=== PATIENT | female | born 2000 | race Caucasian/White ===

== ENCOUNTER 2022-09-24 04:02 | Outpatient (CLI) | payer OTHER, SELFPAY | END 2022-09-24 04:03 | disposition home or self-care (01) | LOC: AMB 10-07 14:18 | PROVIDERS: Visit Provider Family Medicine | DX: T14.91XA Suicide attempt, initial encounter (principal); X78.9XXA Intentional self-harm by unspecified sharp object, initial encounter; Y92.169 Unspecified place in school dormitory as the place of occurrence of the external cause | CPT/HCPCS: A0425; A0427 ==

== ENCOUNTER 2022-09-24 04:37 | Emergency (ER) | payer OTHER, SELFPAY ==
[2022-09-24 04:47] VITALS: BP 125/81; PULSE 99; RESP 20; TEMP 36.8; O2SAT 99; BMI 33.4
--- NOTE | 2022-09-24 05:03 | ED_ITS ---
HPI - General Adult General Time Seen by Provider: 05:03 <Aminah Rodríguez MD - Last Filed: 09/24/22 08:51> Date Seen: 09/24/22 <Aminah Rodríguez MD - Last Filed: 09/24/22 08:51> Chief complaint: Psychiatric Problem/Disorder <Aminah Rodríguez MD - Last Filed: 09/24/22 08:51> Stated complaint: Mental Health <Aminah Rodríguez MD - Last Filed: 09/24/22 08:51> Time Seen by Provider: 09/24/22 04:56 <Aminah Rodríguez MD - Last Filed: 09/24/22 08:51> Source: patient, EMS and RN notes reviewed <Aminah Rodríguez MD - Last Filed: 09/24/22 08:51> Mode of arrival: EMS <Aminah Rodríguez MD - Last Filed: 09/24/22 08:51> Limitations: no limitations <Aminah Rodríguez MD - Last Filed: 09/24/22 08:51> History of Present Illness HPI narrative: Patient is a 22-year-old female that called EMS for a wound on her left forearm that spurted blood from cutting. She states she was trying to hurt herself but not kill herself. She does do self cutting. She has a history of depression and is on Lexapro, has been taking her medication. She is never had a suicide attempt, has never been hospitalized for psychiatric care. 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 She has seen the counselors at [employer] before. Denies any suicidality, no plan. The bleeding in her left forearm from the cutting stopped immediately after some pressure. Her tetanus is up-to-date in 2013. She again denies suicidality, this was not an intent to kill herself. She is otherwise been well, no cough cold symptoms, no illness. Patient has not been drinking any alcohol, does not do any illicit drugs. No chance for . <Aminah Rodríguez MD - Last Filed: 09/24/22 08:51> Related Data Home medications: Home Medications Medication Instructions Recorded Confirmed escitalopram oxalate 10 mg tablet 10 mg PO DAILY 09/24/22 09/24/22 norgestimate 0.25 mg-ethinyl 1 tab PO DAILY 09/24/22 09/24/22 estradiol 35 mcg tablet (Sprintec (28)) <Aminah Rodríguez MD - Last Filed: 09/24/22 08:51> Allergies/adverse reactions: Allergies Allergy/AdvReac Type Severity Reaction Status Date / Time No Known Drug Allergies Allergy Verified 09/24/22 05:06 <Aminah Rodríguez MD - Last Filed: 09/24/22 08:51> Review of Systems Status of ROS: Reports: 10 or more systems reviewed and unremarkable except as noted in History and below <Aminah Rodríguez MD - Last Filed: 09/24/22 08:51> [facility] Medical History: Medical History (Updated 09/24/22 @ 05:15 by Aminah Rodríguez MD) Depression <Aminah Rodríguez MD - Last Filed: 09/24/22 08:51> Social History: Social History Smoking Status: Never smoker Second hand tobacco smoke exposure: No How often do you have a drink containing alcohol: never AUDIT-C Alcohol total score: 0 Non-prescribed substance use: denies use service: No <Aminah Rodríguez MD - Last Filed: 09/24/22 08:51> Exam Const: Vital Signs, click to edit/add: Vital Signs - 24 hr 09/24/22 04:47 Temperature 98.2 F Pulse Rate [Left P ulse Oximeter] 99 Respiratory Rate 20 Blood Pressure [Ri ght Upper Arm] 125/81 Pulse Oximetry 99 Oxygen Delivery Me thod Room Air <Aminah Rodríguez MD - Last Filed: 09/24/22 08:51> Vital Signs, click to edit/add: Vital Signs - 24 hr 09/24/22 04:47 Temperature 98.2 F Pulse Rate [Left P ulse Oximeter] 99 Respiratory Rate 20 Blood Pressure [Ri ght Upper Arm] 125/81 Pulse Oximetry 99 Oxygen Delivery Me thod Room Air <Aminah Kilgore MD - Last Filed: 09/24/22 09:30> Documenting provider has reviewed patient's vital signs: yes <Aminah Rodríguez MD - Last Filed: 09/24/22 08:51> Common normals: no apparent distress, average body habitus, oriented x3, no limitations, healthy appearing and alert <Aminah Rodríguez MD - Last Filed: 09/24/22 08:51> General appearance: cooperative, comfortable, well kempt and well developed <Aminah Rodríguez MD - Last Filed: 09/24/22 08:51> HENMT: Common normals: normocephalic, head/scalp atraumatic and hearing grossly normal bilaterally <Aminah Rodríguez MD - Last Filed: 09/24/22 08:51> Head and scalp: normocephalic and atraumatic <Aminah Rodríguez MD - Last Filed: 09/24/22 08:51> Eye: Common normals: PERRL, EOMs intact bilaterally, conjunctivae normal and no scleral icterus <Aminah Rodríguez MD - Last Filed: 09/24/22 08:51> Conjunctiva: conjunctiva(e) normal <Aminah Rodríguez MD - Last Filed: 09/24/22 08:51> Pupil: PERRL <Aminah Rodríguez MD - Last Filed: 09/24/22 08:51> Neck & C-Spine: Common normals: full ROM, no lymphadenopathy, supple, no meningeal signs, no JVD and thyroid normal <Aminah Rodríguez MD - Last Filed: 09/24/22 08:51> Thyroid: thyroid normal <Aminah Rodríguez MD - Last Filed: 09/24/22 08:51> Resp: Common normals: normal respiratory effort, no retractions, no use of accessory muscles and clear to auscultation bilaterally <Aminah Mix MD - Last Filed: 09/24/22 08:51> Auscultation: clear to auscultation bilaterally <Aminah Rodríguez MD - Last Filed: 09/24/22 08:51> Cardio: Common normals: no JVD, regular rate, regular rhythm, S1 normal heart sound, S2 normal heart sound, no gallops, no clicks and no murmurs <Aminah Rodríguez MD - Last Filed: 09/24/22 08:51> Rate: regular rate <Aminah Rodríguez MD - Last Filed: 09/24/22 08:51> Rhythm: regular rhythm <Aminah Rodríguez MD - Last Filed: 09/24/22 08:51> Heart sounds: S1 normal and S2 normal <Aminah Rodríguez MD - Last Filed: 09/24/22 08:51> Extremity: Other: On her left distal forearm has multiple horizontal cut kraus in various stages of healing. Some a are certainly new. The 1 tonight is just into the subcutaneous tissue, wound edges are very well approximated, it did briefly spread the wound edges just to see how deep it was. The wound edges come back together immediately, there is no active bleeding. This is superficial enough that I do not feel it requires suturing. There is certainly no evidence of any ongoing bleeding. She has other cut kraus that have healed, others are scabbed. No evidence of any infection on this forearm/wrist. <Aminah Rodríguez MD - Last Filed: 09/24/22 08:51> Neuro: Common normals: oriented x3, CN's II-XII intact bilaterally, moves all extremities, no focal motor deficits and no sensory deficits noted <Aminah Rodríguez MD - Last Filed: 09/24/22 08:51> Sensorium/orientation: alert <Aminah Rodríguez MD - Last Filed: 09/24/22 08:51> Meningeal signs: no meningeal signs <Aminah Rodríguez MD - Last Filed: 09/24/22 08:51> Psych: Common normals: mental status grossly normal, thought process normal and cooperative <Aminah Rodríguez MD - Last Filed: 09/24/22 08:51> Appearance: well kempt <Aminah Rodríguez MD - Last Filed: 09/24/22 08:51> Thought process: normal thought process <Aminah Rodríguez MD - Last Filed: 09/24/22 08:51> Other: Looks like she has been crying, not tearful here though. Has good eye contact. Denies suicidality. Speech is normal, very pleasant 22-year-old female. <Aminah Rodríguez MD - Last Filed: 09/24/22 08:51> Course Course Hospital Course: Reviewed with Loren that I would like her to have a consult with [facility]. She is in agreement with this. I do not see that she needs any laboratory workup at this time. If for some reason the telehealth consultation would deeper her to require hospitalization, will need to re-evaluate doing labs. This time she is stable, just want to make sure that we have a good outpatient plan for her. As far as her wounds, we will clean her forearm, dress it. I did have a conversation with her DEC [employer] who felt that Loren was safe to go home. She has been having some suicidal thoughts however does not have a plan and does not want to act on them. She has very future is sick thinking has plans and goals for the end of the school year and this summer. She does have a history of depression and she is currently seeing a counselor. She was able to safety plan today very well. She also has a therapy appointment today at 11:00 a.m.. And reiterated that her cutting was not an attempt on her life. <Aminah Rodríguez MD - Last Filed: 09/24/22 08:51> Consultations Consultation #1: Spoke with telehealth. They will be interviewing the patient to ensure that she is safe for discharge to further outpatient management. They will contact us back once they have had the chance to interview her. <Aminah oRdríguez MD - Last Filed: 09/24/22 08:51> Time: 07:19 <Aminah Rodríguez MD - Last Filed: 09/24/22 08:51> Vital Signs Vital signs: Initial Vital Signs Temperature 98.2 F 09/24/22 04:47 Temperature Source Temporal Artery Scan 12/05/22 04:47 Pulse Rate 99 09/24/22 04:47 Respiratory Rate 20 09/24/22 04:47 Blood Pressure 125/81 09/24/22 04:47 Blood Pressure Mean 95 09/24/22 04:47 Blood Pressure Position Sitting 09/24/22 04:47 Pulse Oximetry 99 09/24/22 04:47 Oxygen Delivery Method 09/24/22 04:47 Vital Signs Temperature 98.2 F 09/24/22 04:47 Pulse Rate 99 09/24/22 04:47 Respiratory Rate 20 09/24/22 04:47 Blood Pressure 125/81 09/24/22 04:47 Pulse Oximetry 99 09/24/22 04:47 Oxygen Delivery Method 09/24/22 04:47 Temperature 98.2 F 09/24/22 04:47 Pulse Rate 99 09/24/22 04:47 Respiratory Rate 20 09/24/22 04:47 Blood Pressure 125/81 09/24/22 04:47 Pulse Oximetry 99 09/24/22 04:47 Oxygen Delivery Method 09/24/22 04:47 <Aminah Rodríguez MD - Last Filed: 09/24/22 08:51> Initial Vital Signs Temperature 98.2 F 09/24/22 04:47 Temperature Source Temporal Artery Scan 09/24/22 04:47 Pulse Rate 99 09/24/22 04:47 Respiratory Rate 20 09/24/22 04:47 Blood Pressure 125/81 09/24/22 04:47 Blood Pressure Mean 95 09/24/22 04:47 Blood Pressure Position Sitting 09/24/22 04:47 Pulse Oximetry 99 09/24/22 04:47 Oxygen Delivery Method 09/24/22 04:47 Vital Signs Temperature 98.2 F 09/24/22 04:47 Pulse Rate 99 09/24/22 04:47 Respiratory Rate 20 09/24/22 04:47 Blood Pressure 125/81 09/24/22 04:47 Pulse Oximetry 99 09/24/22 04:47 Oxygen Delivery Method 09/24/22 04:47 Temperature 98.2 F 09/24/22 04:47 Pulse Rate 99 09/24/22 04:47 Respiratory Rate 20 09/24/22 04:47 Blood Pressure 125/81 09/24/22 04:47 Pulse Oximetry 99 09/24/22 04:47 Oxygen Delivery Method 09/24/22 04:47 <Aminah Kilgore MD - Last Filed: 09/24/22 09:30> Medical Decision Making MDM Narrative Medical decision making narrative: 22-year-old female depression, cutting behavior-after assessment by DEC patient was deemed safe to go home with a safety contract an outpatient care planning. She has several resources were shared with her. Again patient states that she feels safe going home. <Aminah Kilgore MD - Last Filed: 09/24/22 09:30> Critical Care Time Critical Care Time Critical Care Time: No <Aminah Rodríguez MD - Last Filed: 09/24/22 08:51> Discharge Plan Discharge Clinical Impression: Depression, Deliberate self-cutting <Aminah Rodríguez MD - Last Filed: 09/24/22 08:51> Patient Disposition: Home, Self-Care <Aminah Rodríguez MD - Last Filed: 09/24/22 08:51> Condition: Stable <Aminah Rodríguez MD - Last Filed: 09/24/22 08:51> Instructions: Suicide Prevention (ED) <Aminah Rodríguez MD - Last Filed: 09/24/22 08:51> Additional Instructions: Can shower with your left arm wounds, use bandages during the day. Would recommend bacitracin bandaging to keep this wound clean until it is healed. If you do notice any increasing pain, redness, swelling, associated fever or purulent discharge, need to have the wound further evaluated for possible infection. Continue with your Lexapro daily, do recommend seeing therapist at [facility]. At some point when your home, recommend checking in with the physician or provider that manages your Lexapro to make sure that you are on adequate dosage or correct medicine for you. <Aminah Rodríguez MD - Last Filed: 09/24/22 08:51> Activity Level: Activity as Tolerated <Aminah Rodríguez MD - Last Filed: 09/24/22 08:51> Activity as Tolerated <Aminah Kilgore MD - Last Filed: 09/24/22 09:30> Discharge Diet: Regular <Aminah Rodríguez MD - Last Filed: 09/24/22 08:51> Regular <Aminah Kilgore MD - Last Filed: 09/24/22 09:30> Prescriptions: No Action norgestimate-ethinyl estradiol [Sprintec (28)] 0.25-35 mg-mcg tablet 1 tab PO DAILY escitalopram oxalate 10 mg tablet 10 mg PO DAILY <Aminah Rodríguez MD - Last Filed: 09/24/22 08:51> Stand Alone Forms: [facility] Info Instructions <Aminah Rodríguez MD - Last Filed: 09/24/22 08:51>
== END 2022-09-24 09:58 | disposition home or self-care (01) ==
PROVIDERS: Emergency Provider Family Medicine
DX: F32.A Depression, unspecified (principal); S51.812A Laceration without foreign body of left forearm, initial encounter; X78.9XXA Intentional self-harm by unspecified sharp object, initial encounter; Y93.9 Activity, unspecified; Y92.9 Unspecified place or not applicable; Y99.9 Unspecified external cause status
CPT/HCPCS: 99283; 99284

== ENCOUNTER 2023-08-15 22:53 | Emergency (ER) | payer OTHER, SELFPAY ==
[2023-08-15 23:10] VITALS: BP 124/80; PULSE 108; RESP 18; TEMP 37.3; O2SAT 99; BMI 33.4
[2023-08-15 23:24] LABS: Appearance Urine Cloudy (Clear); Bilirubin Urine Negative (Negative); Blood Urine 3+ (Negative); Color Urine Brown (Yellow); Glucose Urine Negative (Negative); Ketones Urine Negative (Negative); Leukocyte Esterase Urine 1+ (Negative); Nitrite Urine Positive (Negative); Protein Urine 3+ (Negative); Specific Gravity Urine >= 1.030 (1.000-1.030); Urobilinogen Urine 0.2 (0.2-1.0); pH Urine 6.5 (5.0-8.5)
[2023-08-15 23:37] LABS: RBC Urine >100 (0-2)
[2023-08-15 23:38] LABS: Amorphous Sediment Urine Few; Bacteria Urine Moderate; Squamous Epithelial Cell Urine Moderate (None-Few)
[2023-08-16 00:31] VITALS: BP 118/78; PULSE 98; RESP 18; TEMP 36.9; O2SAT 99
--- NOTE | 2023-08-16 01:05 | ED_ITS ---
HPI - General Adult General Date Seen: 08/16/23 Chief complaint: Urogenital Problems, Female Stated complaint: UTI Time Seen by Provider: 08/16/23 00:18 Source: patient Mode of arrival: ambulatory Limitations: no limitations History of Present Illness HPI narrative: Patient is a 23-year-old [employer] student who comes in with three days of dysuria, urgency, frequency. No fevers or chills. No back pain. No history of UTI. No vaginal symptoms. No nausea or vomiting. Related Data Home Medications Medication Instructions Recorded Confirmed escitalopram oxalate 10 mg tablet 10 mg PO DAILY 09/24/22 09/24/22 norgestimate 0.25 mg-ethinyl 1 tab PO DAILY 09/24/22 09/24/22 estradiol 35 mcg tablet (Sprintec (28)) Previous Rx's Medication Instructions Recorded sulfamethoxazole 800 1 tab PO BID #10 tabs 08/16/23 mg-trimethoprim 160 mg tablet (Bactrim DS) Allergies Allergy/AdvReac Type Severity Reaction Status Date / Time No Known Drug Allergies Allergy Verified 09/24/22 05:06 Review of Systems Narrative: Review of systems is as outlined above otherwise noted to be negative. [facility] Medical History (Updated 08/16/23 @ 05:27 by Christiano Lemos MD) Depression ?F32.A - Depression, unspecified (ICD-10) Surgical History (Updated 08/16/23 @ 00:31 by Pablo Toledo RN) No significant past surgical history Social History (Updated 08/16/23 @ 05:28 by Christiano Lemos MD) Narrative: Single, [employer] student Smoking Status: Never smoker Second hand tobacco smoke exposure: No How often do you have a drink containing alcohol: never AUDIT-C Alcohol total score: 0 Non-prescribed substance use: denies use service: No Exam Narrative: Exam Narrative: Vitals noted. Lungs: Clear to auscultation in all rainey. No wheezes, rales, rhonchi. Heart: Regular rate and rhythm without murmur. Abdomen: Soft and nontender. No guarding, rigidity, rebound. Bowel sounds are normal. No palpable masses. No CVA or suprapubic tenderness. Extremities: No cyanosis or edema. Good distal pulses. Neurologic: Awake, alert, fully oriented. Neurologic exam is nonfocal. Const: Vital Signs, click to edit/add: Vital Signs - 24 hr 08/15/23 23:10 08/16/23 00:31 Temperature 99.1 F 98.5 F Pulse Rate [Pulse Oximeter] 108 H 98 Respiratory Rate 18 18 Blood Pressure [Ri t Upper Arm] 124/80 118/78 Pulse Oximetry 99 99 Oxygen Delivery Me thod Room Air Room Air Course Course ED Course: Patient was seen and examined. UA is ordered which shows 3+ protein, 3+ blood, nitrite positive, greater than 100 red blood cells, 2-5 white blood cells per high-power field with moderate bacteria. Urine culture is pending Vital Signs Vital signs: Initial Vital Signs Temperature 99.1 F 08/15/23 23:10 Temperature Source Temporal Artery Scan 08/15/23 23:10 Pulse Rate 108 H 08/15/23 23:10 Respiratory Rate 18 08/15/23 23:10 Blood Pressure 124/80 08/15/23 23:10 Blood Pressure Mean 94 08/15/23 23:10 Blood Pressure Position Sitting 08/15/23 23:10 Pulse Oximetry 99 08/15/23 23:10 Oxygen Delivery Method Room Air 08/15/23 23:10 Vital Signs Temperature 99.1 F 08/15/23 23:10 Pulse Rate 108 H 08/15/23 23:10 Respiratory Rate 18 08/15/23 23:10 Blood Pressure 124/80 08/15/23 23:10 Pulse Oximetry 99 08/15/23 23:10 Oxygen Delivery Method Room Air 08/15/23 23:10 Temperature 98.5 F 08/16/23 00:31 Pulse Rate 98 08/16/23 00:31 Respiratory Rate 18 08/16/23 00:31 Blood Pressure 118/78 08/16/23 00:31 Pulse Oximetry 99 08/16/23 00:31 Oxygen Delivery Method Room Air 08/16/23 00:31 Medical Decision Making Lab Data Labs: Lab Results 08/15/23 Range/Units 23:18 Urine Color Brown A (Yellow) Urine Appearance Cloudy A (Clear) Urine pH 6.5 (5.0-8.5) Ur Specific Ermine >= 1.030 (1.000-1.030) Urine Protein 3+ A (Negative) Urine Glucose (UA) Negative (Negative) Urine Ketones Negative (Negative) Urine Blood 3+ A (Negative) Urine Nitrite Positive A (Negative) Urine Bilirubin Negative (Negative) Urine Urobilinogen 0.2 (0.2-1.0) Ur Leukocyte Esterase 1+ A (Negative) Urine RBC >100 A (0-2) Urine WBC 2-5 (0-5) Urine WBC Clumps None (None) Ur Squamous Epith Cells Moderate A (None-Few) Amorphous Sediment Few A (None) Urine Bacteria Moderate A (None) Discharge Plan Discharge Clinical Impression: Urinary tract infection Patient Disposition: Home, Self-Care Condition: Stable Additional Instructions: Push fluids, Bactrim x 5 days, Tylenol for pain. Follow up for high fevers, severe back pain, or no improvement over the next 3 days. Prescriptions: New sulfamethoxazole-trimethoprim [Bactrim DS] 800-160 mg tablet 1 tab PO BID Qty: 10 0RF No Action norgestimate-ethinyl estradiol [Sprintec (28)] 0.25-35 mg-mcg tablet 1 tab PO DAILY escitalopram oxalate 10 mg tablet 10 mg PO DAILY Follow Up/Referrals: Provider,Not a Local [Primary Care Provider] - Stand Alone Forms: [employer] Info Instructions
== END 2023-08-16 01:11 | disposition home or self-care (01) ==
PROVIDERS: Emergency Provider Family Medicine
DX: N39.0 Urinary tract infection, site not specified (principal)
CPT/HCPCS: 81003; 81015; 87086; 87186; 99281; 99283; A9270